=== PATIENT | male | born 1965 | race Caucasian/White ===

== ENCOUNTER 2018-08-17 14:14 | Emergency (ER) | payer BC ==
[~2018-08-17] VITALS: Ht 182.9 cm; Wt 127.3 kg
[2018-08-17 14:27] VITALS: Ht 182.9 cm; Wt 127.3 kg
[2018-08-17] MEDS ORDERED: LISINOPRIL10 MG PO (14:28)
[2018-08-17] MEDS ORDERED: TENORMIN25 MG PO (14:28)
[2018-08-17] MEDS ORDERED: ZYLOPRIM100 MG PO (14:28)
[2018-08-17] MEDS ORDERED: PREVACID30 MG PO (14:29)
[2018-08-17] MEDS ORDERED: ACETAMINOPHEN500 M1 PO (14:29)
[2018-08-17] MEDS ORDERED: MUCINEX600 MG PO (14:29)
[2018-08-17] MEDS ORDERED: NORCO 7.5/325 T1 TA1 PO (19:20)
[2018-08-17 20:06] VITALS: BP 148/98
== END 2018-08-17 20:07 | disposition home or self-care (01) ==
LOC: D.ER 14:14
DX: S32.019A Unspecified fracture of first lumbar vertebra, initial encounter for closed fracture (principal); W11.XXXA Fall on and from ladder, initial encounter; Y93.89 Activity, other specified; Y92.89 Other specified places as the place of occurrence of the external cause; S99.922A Unspecified injury of left foot, initial encounter; I10 Essential (primary) hypertension